=== PATIENT | male | born 1960 | race Two or more races ===

== ENCOUNTER 2018-11-30 08:42 | Emergency (ER) | payer MEDICAID ==
[~2018-11-30] VITALS: Ht 160 cm; Wt 74.8 kg
[2018-11-30 08:48] VITALS: BP 113/68
--- NOTE | 2018-11-30 09:00 | NUR ---
for discharge ACUI given- verbalized understanding Home ambulatory Stable
== END 2018-11-30 09:00 | disposition home or self-care (01) ==
LOC: ER 08:42
DX: M67.442 Ganglion, left hand (principal)
CPT/HCPCS: Z7502

== ENCOUNTER 2020-01-05 08:15 | Emergency (ER) | payer MEDICAID ==
[~2020-01-05] VITALS: Ht 165.1 cm; Wt 60.8 kg
[2020-01-05 08:21] VITALS: BP 134/88
--- NOTE | 2020-01-05 10:01 | NUR ---
Patient discharged to home in stable condition. Written and verbal after care instructions given. Patient verbalizes understanding of instruction.
== END 2020-01-05 10:01 | disposition home or self-care (01) ==
LOC: ER 08:15
DX: R05 Cough (principal); R09.81 Nasal congestion; Z20.828 Contact with and (suspected) exposure to other viral communicable diseases
CPT/HCPCS: 99283; C9803; U0003